=== PATIENT | female | born 1980 | race Two or more races ===

== ENCOUNTER 2017-05-08 07:26 | Day surgery (SDC) | payer OTHER ==
[~2017-05-08] VITALS: Ht 170.2 cm; Wt 118.6 kg
[~2017-05-08 07:26] MED LIST: ATIVAN0.5 MG PO; ATORVASTATIN CA20 MG PO; BUSPAR15 MG PO; DESYREL100 MG PO; ESCITALOPRAM OX20 MG PO; FLEXERIL10 MG PO; MOTRIN800 MG PO; RISPERDAL2 MG PO; TOPIRAMATE50 MG PO; VITAMIN D2000 UNI1 PO; WELLBUTRIN XL150 MG PO; ZIPRASIDONE HCL80 MG PO
[2017-05-08 07:52] VITALS: BP 114/58
[2017-05-08] MEDS ORDERED: HYDROCODON-ACE1 EAC7 PO (10:42)
[2017-05-08] MEDS ORDERED: IBUPROFEN800 MG PO (10:42)
[2017-05-08 11:47] VITALS: BP 117/76
[2017-05-08 14:50] VITALS: BP 121/66
[2017-05-08 18:25] VITALS: BP 119/68
== END 2017-05-08 18:32 | disposition home or self-care (01) ==
LOC: SDC 07:26
DX: Z30.2 Encounter for sterilization (principal); N84.0 Polyp of corpus uteri; N92.0 Excessive and frequent menstruation with regular cycle; E66.9 Obesity, unspecified; Z68.41 Body mass index [BMI] 40.0-44.9, adult
CPT/HCPCS: 88302; 88305; J0131; J0690; J1100; J1170; J1885; J2250; J2405; J3010

== ENCOUNTER 2018-04-19 10:37 | Emergency (ER) | payer OTHER ==
[~2018-04-19] VITALS: Ht 170.2 cm; Wt 104.3 kg
[~2018-04-19 10:37] MED LIST changes: +HYDROCODON-ACE1 EAC7 PO; +IBUPROFEN800 MG PO
[2018-04-19] MEDS ORDERED: AUGMENTIN875 MG PO (12:01)
[2018-04-19 13:13] VITALS: BP 105/63
== END 2018-04-19 13:13 | disposition home or self-care (01) ==
LOC: EME 10:37
DX: S50.812A Abrasion of left forearm, initial encounter (principal); W50.3XXA Accidental bite by another person, initial encounter; Y99.0 Civilian activity done for income or pay; E78.5 Hyperlipidemia, unspecified; F31.9 Bipolar disorder, unspecified
CPT/HCPCS: 99281; 99284